=== PATIENT | female | born 1985 | race Caucasian/White ===

== ENCOUNTER 2021-03-16 15:19 | Emergency (ER) | payer OTHER ==
[~2021-03-16] VITALS: Ht 167.6 cm; Wt 68.1 kg
[2021-03-16] MEDS ORDERED: WELL100T2 PO (15:27)
[2021-03-16] MEDS ORDERED: ONDA4TAB6 PO (19:14)
[2021-03-16 19:43] VITALS: BP 138/74
[2021-03-17] MEDS ORDERED: CELE1CAP4 PO (20:23)
== END 2021-03-16 19:51 | disposition home or self-care (01) ==
LOC: M ED 15:19
DX: R10.9 Unspecified abdominal pain (principal); R11.0 Nausea; Z87.59 Personal history of other complications of pregnancy, childbirth and the puerperium; Z79.899 Other long term (current) drug therapy
CPT/HCPCS: 74177; 76857; 80048; 80076; 81001; 82150; 83690; 84703; 85025; 93976; 96361; 96374; 96375; 99284; J1885; J2405; Q9967

== ENCOUNTER 2021-03-17 20:16 | Emergency (ER) | payer OTHER ==
[~2021-03-17] VITALS: Ht 167.6 cm; Wt 69.0 kg
[~2021-03-17 20:16] MED LIST: ONDA4TAB6 PO; WELL100T2 PO
[2021-03-17] MEDS ORDERED: CELE1CAP4 PO (20:23)
[2021-03-17] MEDS ORDERED: MORPHINE 2 MG/ML 1ML VIAL (J2270) IV ONE (22:20)
[2021-03-17] MEDS ORDERED: ONDANSETRON 4MG/2ML VIAL IV ONE (22:20)
[2021-03-17 22:31] LABS: BASO % 0.6 % (0.0-1.0); EOS % 0.2 % (0.0-3.0); HEMATOCRIT 34.5 % (36.0-47.0); HEMOGLOBIN 11.1 g/dl (12.0-15.5); LYMPH # 1.2 10^3/uL (1.5-5.0); MEAN CORPUSCULAR HEMOGLOBIN 29.7 pg (27.0-33.0); MEAN CORPUSCULAR HGB CONC 32.2 g/dl (32.0-36.5); MEAN CORPUSCULAR VOLUME 92.2 fl (80.0-96.0); MONO # 0.6 10^3/uL (0.0-0.8); MONO % 10.7 % (2.0-8.0); NEUTROPHILS # 3.4 10^3/uL (1.5-8.5); NEUTROPHILS % 65.5 % (36.0-66.0); PLATELET COUNT, AUTOMATED 204 10^3/uL (150-450); RED BLOOD COUNT 3.74 10^6/uL (4.00-5.40); WHITE BLOOD COUNT 5.1 10^3/uL (4.0-10.0)
[2021-03-17] MEDS: GASTROGRAFIN SOLUTION 30ML PO SCH ×2 (22:51→23:30)
[2021-03-17 22:57] LABS: HCG, SERUM QUALITATIVE NEGATIVE (NEGATIVE)
[2021-03-17 23:00] LABS: ALBUMIN 3.7 GM/DL (3.2-5.2); ALT/SGPT 32 U/L (12-78); BILIRUBIN,TOTAL 0.3 MG/DL (0.2-1.0); BLOOD UREA NITROGEN 7 MG/DL (7-18); CALCIUM LEVEL 8.7 MG/DL (8.5-10.1); CARBON DIOXIDE LEVEL 26 MEQ/L (21-32); CHLORIDE LEVEL 105 MEQ/L (98-107); CREATININE FOR GFR 0.82 MG/DL (0.55-1.30); GLOMERULAR FILTRATION RATE > 60.0 (>60); GLUCOSE, FASTING 109 MG/DL (70-100); LIPASE 109 U/L (73-393); POTASSIUM SERUM 4.1 MEQ/L (3.5-5.1); SODIUM LEVEL 137 MEQ/L (136-145); TOTAL PROTEIN 6.8 GM/DL (6.4-8.2)
[2021-03-18] MEDS ORDERED: PANTOPRAZOLE 40MG VIAL (C9113 PER 1) IV ONE (01:15)
[2021-03-18] MEDS ORDERED: TRAM50TA2 PO (01:52)
[2021-03-18] MEDS ORDERED: ONDA4TAB6 PO (01:52)
[2021-03-18] MEDS ORDERED: PROT1TAB2 PO (01:52)
[2021-03-18] MEDS ORDERED: ONDANSETRON 4MG/2ML VIAL IV ONE (02:00)
[2021-03-18 02:21] VITALS: BP 123/76
== END 2021-03-18 02:39 | disposition home or self-care (01) ==
LOC: M ED 20:16
DX: R10.84 Generalized abdominal pain (principal); K30 Functional dyspepsia; F32.A Depression, unspecified; K21.9 Gastro-esophageal reflux disease without esophagitis; Z79.899 Other long term (current) drug therapy
CPT/HCPCS: 74176; 80053; 83605; 83690; 84703; 85025; 87040; 93005; 96374; 96375; 99284; C9113; J2270; J2405; Q9963

== ENCOUNTER → 2022-09-16 | Outpatient (CLI) | payer OTHER ==
[~2022-09-16] MED LIST changes: +CELE1CAP4 PO; +PROT1TAB2 PO; +TRAM50TA2 PO
== END ==
LOC: M SLEEP HO 11:25
PROVIDERS: ATTEND Nurse Practitioner Adult Health
DX: R40.0 Somnolence (principal); R06.83 Snoring

== ENCOUNTER → 2023-02-03 | Outpatient (CLI) | payer OTHER | LOC: M PLAIMG 09:14 | PROVIDERS: ATTEND Physician Assistant | DX: J32.8 Other chronic sinusitis (principal) ==